=== PATIENT | female | born 1990 | race Caucasian/White ===

== ENCOUNTER 2016-07-27 00:16 | Inpatient (IN) | payer MEDICAID, OTHER ==
[2016-07-27] MEDS ORDERED: LIDOCAINE 1% (PRES FREE) 30 ML VIAL ONE (00:35)
[2016-07-27] MEDS ORDERED: LIDOCAINE Viscous 2% 15 ML UDCUP ONE (00:35)
[2016-07-27] MEDS ORDERED: OXYTOCIN 10 UNITS/ML VIAL ONE (00:36)
[2016-07-27] MEDS ORDERED: OXYTOCIN 10 UNITS/ML VIAL IM ONE (00:38)
[2016-07-27] MEDS ORDERED: PNEUMOCOCCAL 23-VAL P-SAC VAC 0.5 ML VIAL IM V ONE (00:51)
[2016-07-27] MEDS ORDERED: FLU VACC 2016-17 (36MO-64Y)/PF 60 MCG/0.5 ML SYRINGE IM V ONE (00:51)
[2016-07-27] MEDS ORDERED: LANOLIN 50 APPLIC/7G TUBE TP PRN (01:23)
[2016-07-27] MEDS ORDERED: SENNOSIDES 8.6 MG TABLET PO PRN (01:23)
[2016-07-27] MEDS ORDERED: ACETAMINOPHEN 325 MG TABLET PO PRN (01:23)
[2016-07-27] MEDS ORDERED: MEASLES,MUMPS&RUBELLA VACCINE 0.5 ML VIAL SUB-Q V ONE (01:23)
[2016-07-27] MEDS ORDERED: MAGNESIUM HYDROXIDE 30 ML UDCUP PO PRN (01:23)
[2016-07-27] MEDS ORDERED: CALCIUM CARBONATE 500 MG TAB.CHEW PO PRN (01:23)
[2016-07-27] MEDS ORDERED: BENZOCAINE/MENTHOL 60 APPLIC/BOT TP PRN (01:23)
[2016-07-27] MEDS ORDERED: DOCUSATE SODIUM 100 MG CAPSULE PO PRN (01:23)
[2016-07-27] MEDS ORDERED: DIPHTH,PERTUSS(ACELL),TET VAC 0.5 ML VIAL IM V ONE (01:23)
[2016-07-27 01:52] VITALS: BMI 33.3
[2016-07-27 03:10] LABS: ABSOLUTE NEUTROPHIL COUNT 9.3 K/mm3 (1.8-7.7); BASO % 0.3 % (0.2-1.0); EOS % 0.3 % (0.9-2.9); HEMATOCRIT 37.8 % (37.0-47.0); HEMOGLOBIN 12.5 gm/l (12.0-16.0); IMM NEUT # 0.1 K/mm3 (0-0.2); IMM NEUT% 0.4 % (0-1); LYMPH # 1.6 (1.0-4.8); LYMPH % 13.5 % (15-45); MEAN CELL VOLUME 87.3 fl (81.0-99.0); MEAN CORPUSCULAR HEMOGLOBIN 28.9 pg (27.0-31.0); MEAN CORPUSCULAR HGB CONC 33.1 g/dl (33.0-37.0); MEAN PLATELET VOLUME 10.8 fl (7.4-10.4); MONO # 0.6 (0.0-0.8); NEUT % 80.5 % (43-75); PLATELET COUNT 223 K/mm3 (130-400); RED CELL DISTRIBUTION WIDTH 14.2 % (11.5-14.5)
[2016-07-27 04:39] LABS: AMPHETAMINES/METHAMPHETAMINES NEGATIVE (NEGATIVE); COCAINE NEGATIVE (NEGATIVE); MARIJUANA NEGATIVE (NEGATIVE); METHADONE NEGATIVE (NEGATIVE); OPIATES POSITIVE (NEGATIVE); TRICYCLIC ANTIDEPRESSANTS NEGATIVE (NEGATIVE)
[2016-07-27] MEDS: IBUPROFEN 800 MG TABLET PO PRN ×3 (06:25→22:41)
--- NOTE | 2016-07-27 09:52 | PCMAN ---
OB Admission Note - History : 3 Term: 2 : 0 Abortions (S&E): 0 Livin EDC:: 07/24/16 (No records available at ) Gestational Age (weeks): 40 Days (#/7): 3 Admit Cervical Dilation:: fully dilated Admit Station:: +2 Membrane Status: Ruptured Rupture (Date): 07/27/16 Rupture (Time): 00:16 (MECONIUM STAINED FLUID) Labor Onset (Date): 07/26/16 Labor Onset (Time): 20:00 Contractions: Yes Contraction Frequency:: q2-3min Heart Rate:: 130 (limited tracing) Status:: unknown EFW:: ? Summary of Course:: Some pre-akhil care through [facility]. [facility] ended at end of June. Pt was switching care to Dr Hernandez but had not had a visit yet. Dr Hernandez for baby care. Pt convinced she was not due for another 1-2 months. She began having contrx at 8PM while watching a video with her 2 boys, ages 3&6yo. She thought she was dehydrated. She tried drinking fluids but contrx just got harder. Eventually pt decided to come in for eval for PTL. Pt's records from [facility] obtained after the . She only had 2 visits with them, both in June. By pt's description it seems she did not recognize that she was until she was pretty far along. She did not believe the US that predicted an EDC of 07/24/16 but was convinced that she was due in October. A pos. Rubella immune Hep B sa Ag neg No GBS sent - Review of Systems Pt mentions a pinched nerve causing pain and numbness in left arm at times. Also she had an unusual migraine headache with emesis 2 weeks ago. She went to [facility] and was evaluated, monitored and treated. She does not want another baby any time soon. She is considering the Mirena IUD. - Physical Exam General: Acute Distress Psych/Mental Status: Mood/Affect Appropriate (for an imminent ) Neurological: Alert Genitourinary: Normal Female Genitalia Extremities: Full ROM Skin: Normal Color, Warm - Problems (1) Precipitous delivery, delivered (current hospitalization) Status: Acute Code: O62.3 Assessment/Plan: On arrival, it was obvious that was imminent. Pt had SROM in bathroom, meconium noted in fluid. Strong urge to push. Necessary preparations made. No time for an IV. - Additional Comments See delivery note.
--- NOTE | 2016-07-27 10:15 | PCMDEL ---
Delivery Note - Labor 1st stage (hr/min):: 4h 16min 2nd stage (hr/min):: 12min 3rd stage (hr/min):: 7min Total (hr/min):: 4h 35min Pushed (hr/min):: twice - Delivery Delivery (Date): 07/27/16 Delivery (Time): 00:28 Gender: Female Weight: 8 lb 10 oz Length: 1 ft 8.5 in Presentation: Cephalic Position: OA Umbilical Cord: 3 Vessel Delayed Cord Clamping:: 2-3 min 1 Minute Total: 8 5 Minute Total: 9 Placenta:: Complete, old meconium stained EBL:: 300 Perineum:: intact Anesthesia/Meds:: None Length ROM:: 12 min Comments:: Pt came in and delivered rapidly after SROM in bathroom. No time to start IV nor to do any antibiotics. Pt indicated that she was perhaps only 34 weeks so preparations were made for a premature baby. Vertex however felt term: as soon as baby was born, it was clear that baby was term and perhaps even post-dates. There was a slight odor to the fluid, so cultures were taken from the placenta. Pt's fundus was firm and placenta delivered spontaneously with just one push with some small clots. EBL 300cc. Pt given 10units of pitocin prophylactively. Inspection of perineum and vagina showed no tears. Mother and baby did well in period.
--- NOTE | 2016-07-27 10:24 | PDOC44 ---
- Subjective Day: 0 (Pt delivered shortly after midnight.) Jewels is doing well, very pleased with baby girl. is going well. Dad is cuddling with baby now. There is a concern about possible infection in this baby; note that we do not know GBS status. I spent some time reviewing pt's history, prior births, PMH and FH. She had a GCT in this that was "borderline" but was never placed on a diet. Her last baby was bigger than this one. Pt is interested in getting a Mirena at 6 weeks. She knows not to get before that visit. Reports Pain Tolerable, Reports , Reports Lochia Light - Objective Temp Pulse Resp BP Pulse Ox 97.6 F 84 18 116/70 07/27/16 08:43 07/27/16 08:43 07/27/16 08:43 07/27/16 08:43 Lab Results 07/27/16 01:50 WBC 11.5 H RBC 4.33 Hgb 12.5 Hct 37.8 Plt Count 223 07/27/16 07/27/16 03:00 01:50 Neut % (Auto) 80.5 H Lymph % (Auto) 13.5 L Absolute Neuts (auto) 9.3 H Eosinophils % 0.3 L Urine Opiates Screen Positive H Current Medications Generic Name Dose Route Start Last Admin Trade Name [place] PRN Reason Stop Dose Admin Acetaminophen 325 mg 07/27/16 01:23 Tylenol PO Q4H PRN Pain (Mild) Benzocaine/Menthol 1 applic 07/27/16 01:23 Dermoplast TP PRN PRN Patient Comfort Calcium Carbonate/Glycine 500 mg 07/27/16 01:23 Tums PO BID PRN Indigestion Docusate Sodium 100 mg 07/27/16 01:23 Colace PO DAILY PRN Comfort Emollient Ointment 1 applic 07/27/16 01:23 [id number] TP PRN PRN sore nipples Ibuprofen 800 mg 07/27/16 01:23 07/27/16 06:25 Motrin PO 800 mg Q8H PRN Administration Pain (Mild) Magnesium Hydroxide 30 ml 07/27/16 01:23 Milk Of Magnesia PO BEDTIME PRN Constipation Oxycodone/Acetaminophen 1 - 2 tab 07/27/16 01:23 Percocet 5/325 PO Q4H PRN Pain (Moderate) Senna 17.2 mg 07/27/16 01:23 Senokot PO BEDTIME PRN Comfort Sodium Chloride 10 ml 07/27/16 01:23 Normal Saline 10ml Flush IV PRN PRN IV Flush - Physical Exam General: Afebrile Psych/Mental Status: Mood/Affect Appropriate, Bonding Well Lungs: Clear to Auscultation Bilaterally Cardiovascular: Regular Rate and Rhythm Fundus: Firm Abdomen: Normal Bowel Sounds, No Tenderness Lochia: Light Skin: Normal Color, Warm - Problems:Assessment/Plan (1) Precipitous delivery, delivered (current hospitalization) Status: Acute Assessment/Plan: On arrival, it was obvious that was imminent. Pt had SROM in bathroom, meconium noted in fluid. Strong urge to push. Necessary preparations made. No time for an IV. Normal immediate ppartum course. Pt denies concerns. Disposition: Stable
[2016-07-27] MEDS: OXYCODONE/ACETAMINOPHEN 5/325 MG TABLET PO PRN (20:49)
[2016-07-28] MEDS: OXYCODONE/ACETAMINOPHEN 5/325 MG TABLET PO PRN ×2 (01:14→05:18)
[2016-07-28] MEDS: IBUPROFEN 800 MG TABLET PO PRN ×2 (06:18→14:41)
--- NOTE | 2016-07-28 07:53 | PDOC44 ---
- Subjective Day: 1 (feels well, no complaints) Reports Flatus, Reports Pain Tolerable, Reports , Reports Lochia Light, Reports Tolerating Regular Diet, Denies Nausea, Denies Vomiting, Denies Fever - Objective Temp Pulse Resp BP Pulse Ox 98.1 F 82 18 115/72 07/28/16 01:30 07/28/16 01:30 07/28/16 01:30 07/28/16 01:30 Current Medications Generic Name Dose Route Start Last Admin Trade Name Freq PRN Reason Stop Dose Admin Acetaminophen 325 mg 07/27/16 01:23 Tylenol PO Q4H PRN Pain (Mild) Benzocaine/Menthol 1 applic 07/27/16 01:23 Dermoplast TP PRN PRN Patient Comfort Calcium Carbonate/Glycine 500 mg 07/27/16 01:23 Tums PO BID PRN Indigestion Docusate Sodium 100 mg 07/27/16 01:23 Colace PO DAILY PRN Comfort Emollient Ointment 1 applic 07/27/16 01:23 07/27/16 14:35 Oxd-[id number]-[id number] TP 1 gtts PRN PRN Administration sore nipples Ibuprofen 800 mg 07/27/16 01:23 07/28/16 06:18 Motrin PO 800 mg Q8H PRN Administration Pain (Mild) Magnesium Hydroxide 30 ml 07/27/16 01:23 Milk Of Magnesia PO BEDTIME PRN Constipation Oxycodone/Acetaminophen 1 - 2 tab 07/27/16 01:23 07/28/16 05:18 Percocet 5/325 PO 1 tab Q4H PRN Administration Pain (Moderate) Senna 17.2 mg 07/27/16 01:23 Senokot PO BEDTIME PRN Comfort Sodium Chloride 10 ml 07/27/16 01:23 Normal Saline 10ml Flush IV PRN PRN IV Flush - Physical Exam General: Afebrile, No Acute Distress Psych/Mental Status: Mood/Affect Appropriate, Judgment/Insight Intact, Bonding Well Breast: Soft, Skin intact, Nipples Intact, No Tenderness, No Erythema, No Engorged Fundus: Firm, Midline, At Umbilicus, Other (nontender) Genitourinary: Other (voiding without difficulty) Lochia: Light Extremities: No Tenderness Disposition: Stable, Anticipate DC to Home
[2016-07-28 14:12] VITALS: BP 118/63
--- NOTE | 2016-07-28 14:47 | PDOC39B ---
Hospital Course: ADMIT DATE: 07/27/16 DISCHARGE DATE: 07/28/16 ADMISSION DIAGNOSES: intrauterine at term, meconium stained fluid, precipitous delivery PROCEDURES: spontaneous vaginal delivery HISTORY OF PRESENT ILLNESS: 25 year old G3 T2 L2 at 40 weeks 3 days presenting in active labor and ruptured membranes HOSPITAL COURSE: The patient had an uneventful post course. rounds were made on 07/28/16 in the morning and she was unsure if she wanted to go home, but later in the day she requested discharge. By day of discharge the patient is ambulating, eating, voiding, and passing flatus without difficulty. Pain is controlled and lochia is appropriate. She is [] - Physical Exam Vital Signs: Temp Pulse Resp BP Pulse Ox 98.7 F 75 16 118/63 07/28/16 14:10 07/28/16 14:10 07/28/16 14:10 07/28/16 14:10 General: Afebrile, No Acute Distress Psych/Mental Status: Mood/Affect Appropriate, Judgment/Insight Intact, Bonding Well Breast: Soft, Skin intact, Nipples Intact, No Tenderness, No Erythema, No Engorged Fundus: Firm, Midline, At Umbilicus, Other (nontender) Genitourinary: Other (voiding without difficulty) Lochia: Light Extremities: No Tenderness - Discharge Plan Condition: Stable Disposition: Home Additional Instructions: nothing in vagina x 6 weeks, office visit with dr camargo in 2 weeks, analgesics as needed. Prescriptions: Ibuprofen [Motrin] 800 mg PO Q8H PRN #30 tablet PRN Reason: Pain
[2016-07-28 23:22] LABS: RAPID PLASMA REAGIN NONREACTIVE (NONREACTIVE)
== END 2016-07-28 18:48 | disposition home or self-care (01) | DRG 775 ==
LOC: FBCOUT 00:16 → FBC 00:17
PROVIDERS: ADMIT Obstetrics & Gynecology; ATTEND Obstetrics & Gynecology
PROC: 10E0XZZ Delivery of Products of Conception, External Approach (ICD-10-PCS; principal; 2016-07-27)
DX: O62.3 Precipitate labor (principal); O77.0 Labor and delivery complicated by meconium in amniotic fluid; Z3A.40 40 weeks gestation of pregnancy; Z37.0 Single live birth

== ENCOUNTER 2016-08-01 14:56 | Outpatient (CLI) | payer MEDICAID | END 2016-08-01 14:57 | disposition home or self-care (01) | LOC: BABIESSH 14:56 | PROVIDERS: ATTEND Obstetrics & Gynecology | DX: Z39.1 Encounter for care and examination of lactating mother (principal) ==